=== PATIENT | male | born 1995 | race Hispanic/Latino ===

== ENCOUNTER 2018-02-19 03:22 | Day surgery (SDC) | payer SELFPAY ==
[2018-02-19] MEDS ORDERED: Fentanyl 100 MCG/2 ML VIAL ONE ×3 (03:31→05:42)
[2018-02-19] MEDS ORDERED: Ondansetron ODT 4 MG TAB ONE (03:32)
[2018-02-19 03:56] LABS: #Basophils 0.1 thou/uL (0.0-0.2); #Eosinphils 0.1 thou/uL (0.0-0.7); #Lymphocytes 3.7 thou/uL (1.20-3.40); #Monocytes 1.1 thou/uL (0.11-0.59); #Neutrophils 6.6 thou/uL (1.40-6.50); %Eosinophils 0.9 % (0.0-10.0); %Lymphocytes 31.9 % (21.0-51.0); %Monocytes 9.2 % (0.0-10.0); Hemoglobin 15.9 g/dL (14.0-18.0); Mean Corpuscular HGB CONC 35.6 g/dL (32.0-36.0); Mean Corpuscular Volume 87.1 fl (80.0-94.0); Mean Platelet Volume 8.1 fL (7.4-10.4); Platelet Count 261 thou/uL (130-400); RBC Distribution Width 11.8 % (11.5-14.5); Red Blood Cell (RBC) Count 5.14 mill/uL (4.70-6.10); White Blood Cell (WBC) Count 11.5 thou/uL (4.8-10.8)
[2018-02-19 04:09] LABS: ALT (SGPT) 75 U/L (8-55); AST (SGOT) 42 U/L (5-34); Albumin 4.6 g/dL (3.5-5.0); Alkaline Phosphatase 73 U/L (40-150); Anion Gap 14 mmol/L (10-20); BUN (Urea Nitrogen) 13 mg/dL (8.9-20.6); Bilirubin, Total 0.3 mg/dL (0.2-1.2); Calc. Creatinine Clearance 0 mL/min (70-130); Calcium 10.6 mg/dL (7.8-10.44); Carbon Dioxide 24 mmol/L (22-29); Chloride 104 mmol/L (98-107); Estimated GFR-MDRD Greater than 90; Globulin 3.1 g/dL (2.4-3.5); Glucose 105 mg/dL (70-105); Lipase 35 U/L (8-78); Potassium 3.9 mmol/L (3.5-5.1); Protein, Total 7.7 g/dL (6.0-8.3); Sodium 138 mmol/L (136-145)
[2018-02-19 05:24] LABS: Bilirubin Negative (Negative); Blood, Urine Negative (Negative); Clarity CLEAR (Clear); Glucose, Urine (Dipstick) Negative (Negative); Leukocyte Negative (Negative); Nitrite Negative (Negative); Protein, Urine (Dipstick) Negative (Neg-Trace); Specific Gravity, Urine 1.016 (1.002-1.036); Urobilinogen 0.2 mg/dL (0.2-1.0)
[2018-02-19] MEDS ORDERED: Piperacillin/Tazobactam 3.375 GM VIAL ONE (07:09)
--- NOTE | 2018-02-19 07:12 | ULT ---
RIGHT UPPER QUADRANT ULTRASOUND: DATE: 02/19/18. PROVIDED CLINICAL HISTORY: Right upper quadrant pain. FINDINGS: The pancreas is obscured by bowel gas. The liver demonstrates an echogenic appearance suggesting fat ty infiltration. There is no evidence for mass or intrahepatic biliary ductal dilatation. The commo n duct is not dilated. There is an echogenic focus noted in the region of the gallbladder neck with associated shadowing suspicious for stone. There is borderline gallbladder wall thickening measuring about 3 mm. The v belt skiver reports a positive sonographic Neri's sign. A small gallbladder wall polyp is also seen versus nonshadowing adherent stone. The right kidney demonstrates no hydronephrosis or mass. IMPRESSION: Suspected gallstone in the region of the gallbladder neck with borderline gallbladder wall thickening and positive sonographic Neri's sign. Correlate with concerns for acute cholecystitis. POS: SANDRITA
[2018-02-19] MEDS ORDERED: Levofloxacin 500 mg/D5W 100 ml Premix Bag ONE (07:32)
[2018-02-19 08:06] LABS: Lactic Acid 0.9 mmol/L (0.5-2.2)
--- NOTE | 2018-02-19 08:57 | CT ---
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 Pt denies symptoms occurring previously. Pt reports having nausea with symptoms, but denies vomiting. Pt reports last meal was tacos, but denies pain occurring with eating previously. Pt denies HX of kidney stones and problems with his gallbladders. Pt reports nkma. Pt notes that he felt some tinging while he was at work when drinking water. Pt reports surgica l HX for his leg. Pt denies urinary or bowel problems. TECHNIQUE: Axial computed tomography images of the abdomen and pelvis with intravenous contrast. All CT scans at this facility use one or more dose reduction techniques, viz.: automated exposure control; ma/kV adj ustment per patient size (including targeted exams where dose is matched to indication; i.e. head); or iterative reconstruction technique. Coronal reformatted images were created and reviewed. CONTRAST: 100 mL of isovue 370 administered intravenously. COMPARISON: US - Abdomen 2018-02-19 03:53 FINDINGS: Lung bases: There is subpleural atelectasis of the dependent portions of the lungs. ABDOMEN: Liver: There are no focal liver lesions identified. Gallbladder and bile ducts: There is trace gallbladder wall haziness and questionable stone. There is no evidence of biliary ductal dilation. Pancreas: The pancreas appears normal. No ductal dilation. Spleen: The spleen is normal. Adrenals: The adrenal glands are normal. Kidneys and ureters: The kidneys appear normal. No hydronephrosis. Stomach and bowel: The stomach is normal. The duodenum is unremarkable. The colon is normal. No obstruction. No mucosal thickening. PELVIS: Appendix: A normal appendix is identified. Bladder: The bladder is normal. Reproductive: The prostate gland and seminal vesicles are normal. ABDOMEN and PELVIS: Intraperitoneal space: Normal. No free air. No significant fluid collection. Bones/joints: No acute fracture. No dislocation. Soft tissues: Normal. Vasculature: Normal. No abdominal aortic aneurysm. Lymph nodes: Normal. No enlarged lymph nodes. IMPRESSION: Questionable gallbladder wall haziness. Acute cholecystitis can have this appearance and further eval uation with RIGHT upper quadrant ultrasound is advised for further characterization. Thank you for allowing us to participate in the care of your patient. Dictated and Authenticated by: Jesus Ramey MD 02/19/2018 7:05 AM Central Time ([place] & [place]) FINAL REPORT CT ABDOMEN AND PELVIS WITH IV CONTRAST: DATE: 02/19/18. TIME: Performed on an emergency basis a 0605 hours. HISTORY: Abdominal pain. FINDINGS: Findings agree with the preliminary report by Dr. Ramey of [facility]. Mild distention of th e gallbladder and very subtle adjacent stranding may represent acute inflammation. Clinical correlat ion regarding other signs and symptoms of acute cholecystitis is required. A single small stone is a pparent on the coronal reformatted images. POS: AYDEN
[2018-02-19] MEDS ORDERED: ISOVUE-370 76%-LOCM 1 ML ONE (10:43)
--- NOTE | 2018-02-19 11:39 | HP ---
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 He was seen in the emergency room, underwent an ultrasound and CAT scan revealing inflammatory changes of the gallbladder and gal lstones and stone lodged in the gallbladder outlet. Otherwise, his CAT scan and ultrasound were norm al. There was no evidence of biliary ductal dilatation. His bilirubin is 0.3, AST and ALT 42 and 75 respectively. Alkaline phosphatase is normal. Lipase normal. Basic metabolic profile normal. Whi te count 11, hemoglobin 15. ALLERGIES: None. TOBACCO: One-half or less pack per day. ALCOHOL: Socially. MEDICATIONS: None routinely. PAST SURGICAL HISTORY: ORIF right femur from a sports injury years ago. PAST MEDICAL HISTORY: Noncontributory. REVIEW OF SYSTEMS: Ten point noncontributory. PHYSICAL EXAMINATION: VITAL SIGNS: Heart rate 74, respiratory rate 18, blood pressure 120/63. HEENT: Unremarkable. Sclerae nonicteric. SKIN: Nonjaundiced. LUNGS: Clear to auscultation. CARDIAC: Regular rate and rhythm without murmur or gallop. ABDOMEN: Soft, tenderness in right upper quadrant, positive Neri's sign. EXTREMITIES: Unremarkable. LYMPH: Axilla, groins neck without lymphadenopathy. NEURO: Neurologically intact. Cranial nerves intact. No neurological deficit, strong in all extrem ities. No weakness. ASSESSMENT AND PLAN: Acute cholecystitis and cholelithiasis. Recommend laparoscopic video cholecyst ectomy. Risk of infection, bleeding, visceral and biliary injury explained and he consents. Jeff mendez answered. PLAN: Laparoscopic cholecystectomy today as an outpatient.
[2018-02-19] MEDS ORDERED: PROPOFOL 200 MG/20 ML VIAL ONE (12:06)
[2018-02-19] MEDS ORDERED: Ondansetron HCl/PF 4 MG/2 ML Vial ONE (12:06)
[2018-02-19] MEDS ORDERED: Lidocaine 1% PF 5 ML VIAL ONE (12:06)
[2018-02-19] MEDS ORDERED: Glycopyrrolate 0.2 MG/ML 5 ML SYRINGE ONE (12:06)
[2018-02-19] MEDS ORDERED: Dexamethasone 20 MG/5 ML VIAL ONE (12:06)
[2018-02-19] MEDS ORDERED: Fentanyl 250 MCG/5 ML VIAL ONE (12:49)
[2018-02-19] MEDS ORDERED: Ketorolac Tromethamine 30 MG/ML VIAL ONE (12:52)
[2018-02-19] MEDS ORDERED: Bupivacaine HCl 0.5%/Epinephrine 1:200,000/PF 30 ml Vial ONE (13:16)
--- NOTE | 2018-02-19 15:02 | OP ---
DATE OF PROCEDURE: 02/19/2018 PREOPERATIVE DIAGNOSES: Acute on chronic cholecystitis and cholelithiasis. POSTOPERATIVE DIAGNOSES: Acute on chronic cholecystitis and cholelithiasis. PROCEDURE PERFORMED: Laparoscopic video cholecystectomy. SURGEON: Dr. Thien Drummond ANESTHESIA: General. Local 0.5% Marcaine with epinephrine 30 mL mixed with a total volume mixture u sed. PROCEDURE IN DETAIL: The patient was taken to the operating room where under general anesthesia, abd omen was clipped of hair, prepared with ChloraPrep, draped in routine fashion. Local anesthetic infi ltrated into skin and subcutaneous tissue about each port site. Infraumbilical incision made. Pneum operitoneum to 15 mmHg obtained with the Veress needle, replacing it with a 5 port and video laparosc ope inserted. Right subxiphoid incision made and 11 port placed. Right subcostal incision made, mid clavicular anterior axillary lines and 5 ports placed. The gallbladder was acutely inflamed. Liver appeared to be normal. Fundus of gallbladder grasped and reflected cephalad. Infundibulum grasped and reflected laterally. Cystic artery and duct dissected free. Critical view obtained. Cystic art karoline and duct doubly clipped proximally, divided, and gallbladder dissected free from the liver bed ob taining good hemostasis prior to division of final felt attachments. Gallbladder and contents remove d. There was a stone obstructing the gallbladder outlet. Good hemostasis ensured in liver bed. Goo d hemostasis had been obtained. Irrigant and pneumoperitoneum evacuated. All instruments removed an d all skin incisions approximated with interrupted subdermal 4-0 Monocryl and DermaGlue applied.
[2018-02-19] MEDS ORDERED: HYDROcodone/Acetaminophen 5/325 mg Tablet ONE (16:40)
== END 2018-02-19 17:44 | disposition home or self-care (01) ==
LOC: ERS 03:22 → SDC 11:55
PROVIDERS: ATTEND Specialist
PROC: 0FT44ZZ Resection of Gallbladder, Percutaneous Endoscopic Approach (ICD-10-PCS; principal; 2018-02-19)
DX: K81.1 Chronic cholecystitis (principal); F17.210 Nicotine dependence, cigarettes, uncomplicated
CPT/HCPCS: 36415; 74177; 76705; 80053; 81003; 83605; 83690; 85025; 87040; 88304; 96361; 96365; 96375; 96376; J0131; J0670; J1885; J1956; J2543; J3010; Q0162

== ENCOUNTER 2018-07-31 16:44 | Emergency (ER) | payer SELFPAY ==
[2018-07-31] MEDS ORDERED: Ketorolac Tromethamine 30 MG/ML VIAL ONE (17:22)
== END 2018-07-31 17:48 | disposition home or self-care (01) ==
LOC: ERS 16:44
DX: B02.9 Zoster without complications (principal); F31.9 Bipolar disorder, unspecified; F41.9 Anxiety disorder, unspecified; F90.9 Attention-deficit hyperactivity disorder, unspecified type; F98.8 Other specified behavioral and emotional disorders with onset usually occurring in childhood and adolescence; F17.210 Nicotine dependence, cigarettes, uncomplicated
CPT/HCPCS: 96372; J1885

== ENCOUNTER 2018-08-03 19:39 | Emergency (ER) | payer SELFPAY ==
[2018-08-03] MEDS ORDERED: Proparacaine 0.5% Opth 15 ML BOT ONE (20:24)
[2018-08-03] MEDS ORDERED: Fluorescein Opthalmic Strip ONE (20:24)
== END 2018-08-03 20:52 | disposition home or self-care (01) ==
LOC: ERS 19:39
DX: B02.30 Zoster ocular disease, unspecified (principal); F90.9 Attention-deficit hyperactivity disorder, unspecified type; F41.9 Anxiety disorder, unspecified; F31.9 Bipolar disorder, unspecified; F98.8 Other specified behavioral and emotional disorders with onset usually occurring in childhood and adolescence; F17.210 Nicotine dependence, cigarettes, uncomplicated; Z79.899 Other long term (current) drug therapy
CPT/HCPCS: 99283

== ENCOUNTER 2018-08-26 15:41 | Emergency (ER) | payer SELFPAY ==
[2018-08-26] MEDS ORDERED: Proparacaine 0.5% Opth 15 ML BOT ONE (16:51)
[2018-08-26] MEDS ORDERED: Fluorescein Opthalmic Strip ONE (16:52)
== END 2018-08-26 18:05 | disposition home or self-care (01) ==
LOC: ERS 15:41
DX: H10.9 Unspecified conjunctivitis (principal); F90.9 Attention-deficit hyperactivity disorder, unspecified type; F31.9 Bipolar disorder, unspecified; F41.9 Anxiety disorder, unspecified; F98.8 Other specified behavioral and emotional disorders with onset usually occurring in childhood and adolescence; F17.210 Nicotine dependence, cigarettes, uncomplicated
CPT/HCPCS: 99283

== ENCOUNTER 2018-09-17 18:15 | Emergency (ER) | payer BC, SELFPAY ==
[2018-09-17] MEDS ORDERED: Ondansetron PF 4 MG/2 ML Vial ONE (19:15)
[2018-09-17] MEDS ORDERED: Dicyclomine 20 MG TAB ONE (19:15)
[2018-09-17 19:19] LABS: #Eosinphils 0.1 thou/uL (0.0-0.7); #Monocytes 0.9 thou/uL (0.11-0.59); #Neutrophils 13.3 thou/uL (1.40-6.50); %Basophils 0.1 % (0.0-1.0); %Eosinophils 0.6 % (0.0-10.0); %Lymphocytes 6.5 % (21.0-51.0); %Monocytes 5.9 % (0.0-10.0); %Neutrophils 86.9 % (42.0-75.0); Hemoglobin 17.3 g/dL (14.0-18.0); Mean Corpuscular HGB CONC 32.8 g/dL (32.0-36.0); Mean Corpuscular Hemoglobin 28.9 pg (27.0-31.0); Mean Corpuscular Volume 88.2 fL (78.0-98.0); Mean Platelet Volume 8.4 fL (7.4-10.4); Platelet Count 276 thou/uL (130-400); Red Blood Cell (RBC) Count 5.98 mill/uL (4.70-6.10); White Blood Cell (WBC) Count 15.3 thou/uL (4.8-10.8)
[2018-09-17 19:36] LABS: Anion Gap 14 mmol/L (10-20); BUN (Urea Nitrogen) 13 mg/dL (8.9-20.6); Calc. Creatinine Clearance 0 mL/min (70-130); Calcium 10.4 mg/dL (7.8-10.44); Carbon Dioxide 22 mmol/L (22-29); Chloride 104 mmol/L (98-107); Estimated GFR-MDRD Greater than 90; Glucose 87 mg/dL (70-105); Lipase 16 U/L (8-78); Potassium 4.2 mmol/L (3.5-5.1); Sodium 136 mmol/L (136-145)
== END 2018-09-17 20:34 | disposition home or self-care (01) ==
LOC: ERS 18:15
DX: R11.2 Nausea with vomiting, unspecified (principal); R19.7 Diarrhea, unspecified; F31.9 Bipolar disorder, unspecified; F41.9 Anxiety disorder, unspecified; Z87.891 Personal history of nicotine dependence; F90.9 Attention-deficit hyperactivity disorder, unspecified type
CPT/HCPCS: 80048; 83690; 85025; 96361; 96374; J2405

== ENCOUNTER 2018-10-02 14:01 | Emergency (ER) | payer BC | END 2018-10-02 14:05 | disposition home or self-care (01) | LOC: ERS 14:01 | DX: G43.909 Migraine, unspecified, not intractable, without status migrainosus (principal); F31.9 Bipolar disorder, unspecified; F41.9 Anxiety disorder, unspecified; F90.9 Attention-deficit hyperactivity disorder, unspecified type; Z87.891 Personal history of nicotine dependence | CPT/HCPCS: 99283 ==

== ENCOUNTER 2018-10-09 10:29 | Emergency (ER) | payer BC ==
[2018-10-09] MEDS ORDERED: Ketorolac Tromethamine 30 MG/ML VIAL ONE (11:05)
[2018-10-09] MEDS ORDERED: Metoclopramide HCl 10 MG/2 ML VIAL ONE (11:05)
== END 2018-10-09 14:00 | disposition home or self-care (01) ==
LOC: ERS 10:29
DX: G43.909 Migraine, unspecified, not intractable, without status migrainosus (principal); F31.9 Bipolar disorder, unspecified; F41.9 Anxiety disorder, unspecified; F90.9 Attention-deficit hyperactivity disorder, unspecified type; Z87.891 Personal history of nicotine dependence; Z79.899 Other long term (current) drug therapy
CPT/HCPCS: 96365; 96375; J1885; J2765